=== PATIENT | female | born 1950 | race Caucasian/White ===

== ENCOUNTER 2019-01-14 14:48 | Inpatient (IN) ==
[2019-01-14] MEDS ORDERED: SODIUM CHLORIDE 0.9% 1000ML 1,000 ML IV SCH (15:00)
[2019-01-14] MEDS ORDERED: MoRPHine SULFATE 2 MG/ML CARP IV PRN (15:00)
[2019-01-14] MEDS: MoRPHine SULFATE 4 MG/ML 1 ML CARP\\VIAL IV PRN ×5 (15:22→22:31)
[2019-01-14 15:29] LABS: Basophils # (auto) 0.07 K/uL (0-0.2); Basophils % (auto) 1.1 %; Eosinophils % (auto) 1.6 %; Hematocrit (blood only) 40.6 % (37-47); Hemoglobin 13.5 g/dL (12.0-16.0); Immature Granulocytes # (auto) 0.02 K/uL (0.00-0.02); Immature Granulocytes % (auto) 0.3 %; Lymphocytes # (auto) 1.99 K/uL (1.2-3.4); Lymphocytes % (auto) 31.9 %; Mean Corpuscular Hgb Conc 33.3 g/dL (32-36); Mean Corpuscular Volume 86.4 fL (80-100); Mean Platelet Volume 10.1 fL (7.4-10.4); Monocytes # (auto) 0.51 K/uL (0.11-0.59); Monocytes % (auto) 8.2 %; Neutrophils # (auto) 3.55 K/uL (1.4-6.5); Neutrophils % (auto) 56.9 %; Platelet Count 225 K/uL (130-400); RDW Standard Deviation 44.3 fL (36.4-46.3); White Blood Count 6.24 K/uL (4.8-10.8)
[2019-01-14 15:42] LABS: Partial Thromboplastin Ratio 0.9; Partial Thromboplastin Time 24.6 Seconds (21.0-31.0); Prothrombin Time 10.3 Seconds (9.0-12.0)
[2019-01-14 15:44] LABS: BUN Creatinine Ratio 18.6 (10-20); Calcium 9.3 mg/dl (8.5-10.1); Creatinine Clr Calc Pharmacy 55.7 ml/min; Est GFR (African American) 70.3; Est GFR (Non-African American) 60.7; Potassium 3.7 mmol/L (3.5-5.1)
[2019-01-14] MEDS ORDERED: MoRPHine SULFATE 4 MG/ML 1 ML CARP\\VIAL IV STA (15:47)
--- NOTE | 2019-01-14 16:00 | XRay Report ---
XR hip LT min 2V CLINICAL HISTORY: 68 years-old Female presenting with hip fx. TECHNIQUE: Frontal and frog-leg lateral views of the left hip were obtained. COMPARISON: None. FINDINGS: Intertrochanteric fracture of the left femoral neck with displaced fracture fragments along the super ior fracture plane. There is displacement of the lesser trochanteric fracture fragment. There is baeza tases less than 1 cm at the fracture plane. Mildly exaggerated varus angulation. The left femoral hea d remains congruent in the acetabulum. No deformity of the femoral head. Bony pelvis grossly intact. No radiographic soft tissue abnormality. IMPRESSION: Comminuted mildly angulated intertrochanteric left femur fracture. Electronically signed by: Jorge Jack M.D. 01/14/2019 3:59 PM
--- NOTE | 2019-01-14 16:01 | XRay Report ---
XR chest 1V portable CLINICAL HISTORY: 68 years-old Female presenting with hip fx. TECHNIQUE: Portable upright AP view of the chest was obtained. COMPARISON: None. FINDINGS: Atherosclerosis of the aortic arch. Cardiac silhouette top normal in size. No focal opacity. No large effusion or pneumothorax. Osseous structures normal. Upper abdomen normal. IMPRESSION: 1. Borderline cardiomegaly. No other convincing evidence of acute cardiopulmonary disease. Electronically signed by: Jorge Jack M.D. 01/14/2019 4:00 PM
--- NOTE | 2019-01-14 16:19 | Emergency Department Note ---
Entered by oSphia Stoner acting as a scribe for Jhonathan Ruano DO History of Present Illness General Chief complaint: Fall Stated complaint: FALL, HIP PAIN Time Seen by Provider: 01/14/19 14:53 Source: patient History of Present Illness Onset (ago): hour(s) (prior to arrival) Location: hip (fall) Pain Consistency: + other (episode) Relieved By: + none Associated symptoms: + denies other symptoms (numbness or tingling) and + other (left hip pain) The patient is a 68 year old F who presents to the Emergency Room with complaints of an episode of a fall that occurred prior to arrival. The patient states that she was at [employer] [place] when she slipped on something on the ground. She notes that her left leg gave out and she landed on her left hip. She adds that the ground was made of concrete. She notes that she is currently experiencing left hip pain. She denies experiencing numbness or tingling. She also denies hitting her head. She notes that she has a history of osteoporosis. She adds that she used to be prescribed Boniva but states that she was taken off of it after experiencing numbness. She states that she ate last today at 9am this morning. Home Medications Home Medications Medication Instructions Recorded Confirmed Type No Known Home Medications 01/14/19 01/14/19 History Allergies Allergy/AdvReac Type Severity Reaction Status Date / Time UMBERTO Inhibitors Allergy Mild Unknown Unverified 01/14/19 15:06 Penicillins Allergy Mild Unknown Unverified 01/14/19 15:06 Sulfa (Sulfonamide Allergy Mild Unknown Unverified 01/14/19 15:06 Antibiotics) Past Med/Surg History Medical History ACL injury tear (Chronic) Osteoporosis (Chronic) Family History Other No significant family history Social History Feels Safe at Home: Yes Smoking Status: Never smoker Review of Systems See HPI for pertinent positives & negatives. and A total of 10 systems reviewed and were otherwise negative Physical Exam Vital Signs Vital Signs - 24 hr 01/14/19 14:58 Temperature 36.8 C Temperature Source Oral Sepsis Recent Fever Within 48 Hours No Sepsis New/Unexplained Change in Mental Status No Sepsis Action Taken by Nursing No Action Required Pulse Rate 68 Respiratory Rate 18 Blood Pressure 167/96 H Blood Pressure Mean 119 Pulse Oximetry 98 Oxygen Delivery Method Room Air CONSTITUTIONAL/VITAL SIGNS: Reviewed / noted above. GENERAL: Non-toxic in appearance. INTEGUMENTARY: Warm, dry, and [place]. HEAD: Normocephalic. EYES: without scleral icterus or trauma. ENT/OROPHARYNX: clear and moist. LYMPHADENOPATHY/NECK: Is supple without lymphadenopathy or meningismus. RESPIRATORY: Lungs clear and equal. CARDIOVASCULAR: Regular rate and rhythm. GI/ABDOMEN: Soft and nontender. No organomegaly or pulsatile mass. No rebound or guarding. Normal bowel sounds. EXTREMITIES: Warm and well perfused. Left leg is externally rotated, slightly flexed, with obvious pain to movement. BACK: No CVA tenderness. NEUROLOGICAL: Intact without focal deficits. PSYCHIATRIC: normal affect. MUSCULOSKELETAL: Normally developed with good muscle tone. Tenderness to palpation of the left hip area. Course 1454: The patient was evaluated in room C9. A complete history and physical exam was performed. 1604: I re-checked the patient and updated her on her test results. 1608: I reviewed the patient's case with Dr. Matt Christine, [facility] Hospitalist. He will evaluate the patient for further management. Consultations Consultation #1: I reviewed the patient's case with Dr. Matt Christine, [facility] Hospitalist. He will evaluate the patient for further management. Time: 16:08 Administered Medications Sodium Chloride (Nss 1000ml) 1,000 mls @ 150 mls/hr IV .[id number] RADHA Stop: 01/14/19 21:39 Last Admin: 01/14/19 15:22 Dose: 150 mls/hr Documented by: [id number] Morphine Sulfate (Morphine Sulfate) 4 mg IV Q1H PRN PRN Reason: Severe Pain (Rating 7,8,9,10) Stop: 01/28/19 14:59 Last Admin: 01/14/19 15:22 Dose: 4 mg Documented by: [id number] Discontinued Medications Morphine Sulfate (Morphine Sulfate) 4 mg IV NOW STA Stop: 01/14/19 15:48 Last Admin: 01/14/19 15:50 Dose: 4 mg Documented by: [id number] Medical Decision Making Differential Diagnosis Differential diagnosis includes: fracture, dislocation, intra-abdominal, pneumothorax, intrathoracic , intracranial, neurologic, as well as other traumatic pathologies were entertained. Medical Records Attestation: I reviewed the patient's medical records. Home Medications Current Medication List: was personally reviewed by me Laboratory Data Attestation: I reviewed the patient's lab results. Result diagrams: 01/14/19 15:12 01/14/19 15:12 Lab Results 01/14/19 01/14/19 01/14/19 Range/Units 15:12 15:12 15:12 WBC 6.24 (4.8-10.8) K/uL RBC 4.70 (4.2-5.4) M/uL Hgb 13.5 (12.0-16.0) g/dL Hct 40.6 (37-47) % MCV 86.4 (80-100) fL MCH 28.7 (25-34) pg MCHC 33.3 (32-36) g/dL RDW Std Deviation 44.3 (36.4-46.3) fL RDW Coeff of Erica 14.0 (11.5-14.5) % Plt Count 225 (130-400) K/uL MPV 10.1 (7.4-10.4) fL Immature Gran % (Auto) 0.3 % Neut % (Auto) 56.9 % Lymph % (Auto) 31.9 % [place] % (Auto) 8.2 % Eos % (Auto) 1.6 % Baso % (Auto) 1.1 % Immature Gran # (Auto) 0.02 (0.00-0.02) K/uL Neut # (Auto) 3.55 (1.4-6.5) K/uL Lymph # (Auto) 1.99 (1.2-3.4) K/uL [place] # (Auto) 0.51 (0.11-0.59) K/uL Eos # (Auto) 0.10 (0-0.5) K/uL Baso # (Auto) 0.07 (0-0.2) K/uL PT 10.3 (9.0-12.0) Seconds INR 1.0 (0.9-1.1) APTT 24.6 (21.0-31.0) Seconds PTT Ratio 0.9 Sodium 141 (136-145) mmol/L Potassium 3.7 (3.5-5.1) mmol/L Chloride 110 H (98-107) mmol/L Carbon Dioxide 25 (21-32) mmol/L Anion Gap 7.0 (3-11) BUN 18 (7-18) mg/dl Creatinine 0.95 (0.6-1.2) mg/dl Est Cr Clr Drug Dosing 55.7 ml/min Est GFR ( Amer) 70.3 Est GFR (Non-Af Amer) 60.7 BUN/Creatinine Ratio 18.6 (10-20) Glucose 86 (70-99) mg/dl Calcium 9.3 (8.5-10.1) mg/dl Imaging Data Radiologist's Impression: Radiology results as stated below per my review and the radiologist's interpretation: XR hip LT min 2V CLINICAL HISTORY: 68 years-old Female presenting with hip fx. TECHNIQUE: Frontal and frog-leg lateral views of the left hip were obtained. COMPARISON: None. FINDINGS: Intertrochanteric fracture of the left femoral neck with displaced fracture fragments along the superior fracture plane. There is displacement of the lesser trochanteric fracture fragment. There is diastases less than 1 cm at the fracture plane. Mildly exaggerated varus angulation. The left femoral head remains congruent in the acetabulum. No deformity of the femoral head. Bony pelvis grossly intact. No radiographic soft tissue abnormality. IMPRESSION: Comminuted mildly angulated intertrochanteric left femur fracture. Electronically signed by: Jorge Jack M.D. 01/14/2019 3:59 PM XR chest 1V portable CLINICAL HISTORY: 68 years-old Female presenting with hip fx. TECHNIQUE: Portable upright AP view of the chest was obtained. COMPARISON: None. FINDINGS: Atherosclerosis of the aortic arch. Cardiac silhouette top normal in size. No focal opacity. No large effusion or pneumothorax. Osseous structures normal. Upper abdomen normal. IMPRESSION: 1. Borderline cardiomegaly. No other convincing evidence of acute cardiopulmonary disease. Electronically signed by: Jorge Jack M.D. 01/14/2019 4:00 PM ECG Data Attestation: I personally reviewed and interpreted this ECG as follows: Indication: other (hip pain from fall) Rate (beats per minute): 74 Rhythm: normal sinus Findings: no ST elevation and no ectopy Blood Pressure Blood Pressure Findings: Elevated blood pressure Blood Pressure Disposition: further management by hospitalist ELIZABETH Swift This is a 68-year-old female who presents to the ED with a chief complaint of a fall. The patient states that she slipped on wet cement when reaching for something and fell onto her left side. 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 She is from [place]. The patient complains of left hip pain. She was transported by EMS. Her test results today are consistent with the clinical diagnosis of a left hip fracture. X-ray shows a left intertrochanteric fracture. EKG shows sinus rhythm at a rate of 74. CBC and complete metabolic panel were normal and a chest x-ray did not show acute process. The patient was treated with IV morphine during her stay. She was told the results. I spoke with the hospitalist who will see her for further evaluation and care. Dr. Houser was consulted for orthopedics. Impression & Plan Hip fracture, left Discharge Plan Visit Data Chief Complaint: Fall Stated Complaint: FALL, HIP PAIN ED Provider: Jhonathan Ruano Discharge Problem: Hip fracture, left Patient Disposition: Admitted As Inpatient Forms Stand Alone Forms: [facility] Prescriptions Prescriptions: No Action No Known Home Medications RF: 0 Referrals Referrals: PCP,NO [Primary Care Provider] - Discharge Problem: Hip fracture, left Qualifiers: Encounter type: initial encounter Fracture type: closed Qualified Code(s): S72.002A - Fracture of unspecified part of neck of left femur, initial encounter for closed fracture The scribe's documentation has been prepared under my direction and personally reviewed by me in its entirety. I confirm that the note above accurately reflects all work, treatment, procedures, and medical decision making performed by me.
[2019-01-14 16:43] LABS: Appearance Urine Clear (Clear); Bilirubin Urine Negative (Negative); Blood Urine Negative (Negative); Color Urine Yellow; Glucose Urine UA Negative (Negative); Ketones Urine 1+ (Negative); Leukocyte Esterase Urine Negative (Negative); Nitrite Urine Negative (Negative); Protein Urine Negative (Negative); Specific Gravity Urine 1.014 (1.000-1.030); Urobilinogen Urine Negative (Negative); pH Urine 5.5 (4.5-7.5)
--- NOTE | 2019-01-14 16:56 | History & Physical Report ---
Date of Service January 14, 2019 History of Present Illness Primary Care Provider: NO PCP Allergies Allergy/AdvReac Type Severity Reaction Status Date / Time UMBERTO Inhibitors Allergy Mild Unknown Unverified 01/14/19 15:06 Penicillins Allergy Mild Unknown Unverified 01/14/19 15:06 Sulfa (Sulfonamide Allergy Mild Unknown Unverified 01/14/19 15:06 Antibiotics) Home Medications Home Medications Medication Instructions Recorded Confirmed Type No Known Home Medications 01/14/19 01/14/19 History Past Med/Surg History Medical History ACL injury tear (Chronic) Osteoporosis (Chronic) Family History Other No significant family history Social History Feels Safe at Home: Yes Smoking Status: Never smoker Results & Data Vital Signs (Past 12 Hours) Vital Signs Temp Pulse Pulse Resp BP BP Pulse Ox 01/14/19 16:26 74 18 161/89 H 98 01/14/19 14:58 98.2 F 68 18 167/96 H 98 PG Care Time/CCT Total # of Minutes Spent Total Time Spent with Patient: Total time spent is greater than 50% in coordination of care (as documented) at patient's floor/unit and/or counseling patient:
[2019-01-14] MEDS ORDERED: MAGNESIUM HYDROXIDE SUSP 30 ML UDC PO PRN ×2 (17:53→18:26)
[2019-01-14] MEDS ORDERED: BISACODYL 10 MG SUPP PR PRN (17:53)
[2019-01-14] MEDS ORDERED: NALOXONE HCL 0.4 MG/1 ML VIAL/CARP IV PRN (17:53)
--- NOTE | 2019-01-14 17:56 | History & Physical Report ---
Date of Service January 14, 2019 Assessment & Plan (1) Hip fracture, left: Closed left intertrochanteric fracture- Admit to medical surgical bed. N.p.o. after midnight. NSS + KCl 20 mEq at 100 mils per hour. Acetaminophen 1 g IV every 8 hours PRN mild pain or temperature. Morphine sulfate 4 mg IV every 3 hours as needed severe pain. Zofran 4 mg IV every 6 hours as needed. Famotidine 20 mg IV every 12 hours as needed. Consult Dr. Geo Houser, [place] [facility]. Geriatric hip fracture program Present on Admission?: Yes (2) Osteoporosis: Will need calcium and vitamin D supplementation. Present on Admission?: Yes (3) ACL injury tear: Resolved issue. Present on Admission?: Yes History of Present Illness Chief Complaint: Patient presents to the emergency department with left hip pain status post fall. Primary Care Provider: NO PCP The patient is a 68-year-old female with past medical history significant for ACL tear and osteoporosis, who had a mechanical fall earlier in the day, and sustained immediate left hip pain. In the emergency department, work-up included an x-ray which showed a closed left intertrochanteric fracture. Allergies Allergy/AdvReac Type Severity Reaction Status Date / Time UMBERTO Inhibitors Allergy Mild Unknown Unverified 01/14/19 15:06 Penicillins Allergy Mild Unknown Unverified 01/14/19 15:06 Sulfa (Sulfonamide Allergy Mild Unknown Unverified 01/14/19 15:06 Antibiotics) Home Medications Home Medications Medication Instructions Recorded Confirmed Type No Known Home Medications 01/14/19 01/14/19 History Past Med/Surg History Medical History ACL injury tear (Chronic) Osteoporosis (Chronic) Family History Other No significant family history Social History Feels Safe at Home: Yes Smoking Status: Never smoker Review of Systems Review of Systems: The patient denies chest pain, palpitations, shortness of breath, dyspnea on exertion, cough, lower extremity swelling, sore throat, fevers, chills, sweats, weight change, fatigue, nausea, vomiting, diarrhea , constipation, abdominal pain, pelvic pain, blood in urine or stool, dysuria, urinary frequency or urgency, lightheadedness, dizziness, headache, memory loss, loss of consciousness, rash, abnormal bruising or bleeding, focal or generalized weakness, numbness or tingling in arms or right leg, generalized arthralgias or myalgias, back or neck pain, or night sweats. The review of systems is otherwise negative other than for that already noted above, and at least 10 systems have been reviewed. Physical Exam Physical Exam: The patient is awake, alert and oriented 3, well developed and well nourished, normocephalic and atraumatic, lying in bed and in no acute distress. HEENT--PERRL, EOMI, mucous membranes and oropharynx normal. Neck--supple. No JVD. No bruits. Thyroid normal, trachea midline, no omid nopathy. Heart--normal S1 and S2. No murmurs, rubs or gallops. Lungs--clear bilaterally, no respiratory distress, no accessory muscle use. Abdomen--normal bowel sounds and soft. Nontender. Nondistended. Extremities--no cyanosis or clubbing. No edema. There are good distal pulses b/l. Dermatologic--normal skin turgor, normal color, no abnormal lymph nodes, no rash. Neurologic--cranial nerves II through XII grossly intact. Rheumatologic--decreased range of motion and reproducible pain over left hip, otherwise normal exam. Psychiatric--normal affect. Results & Data Vital Signs (Past 12 Hours) Vital Signs Temp Pulse Pulse Resp BP BP Pulse Ox 01/14/19 16:26 74 18 161/89 H 98 01/14/19 14:58 98.2 F 68 18 167/96 H 98 Laboratory Results Laboratory Results WBC 6.24 K/uL (4.8-10.8) 01/14/19 15:12 RBC 4.70 M/uL (4.2-5.4) 01/14/19 15:12 Hgb 13.5 g/dL (12.0-16.0) 01/14/19 15:12 Hct 40.6 % (37-47) 01/14/19 15:12 MCV 86.4 fL (80-100) 01/14/19 15:12 MCH 28.7 pg (25-34) 01/14/19 15:12 MCHC 33.3 g/dL (32-36) 01/14/19 15:12 RDW Std Deviation 44.3 fL (36.4-46.3) 01/14/19 15:12 RDW Coeff of Erica 14.0 % (11.5-14.5) 01/14/19 15:12 Plt Count 225 K/uL (130-400) 01/14/19 15:12 MPV 10.1 fL (7.4-10.4) 01/14/19 15:12 Immature Gran % (Auto) 0.3 % 01/14/19 15:12 Neut % (Auto) 56.9 % 01/14/19 15:12 Lymph % (Auto) 31.9 % 01/14/19 15:12 [place] % (Auto) 8.2 % 01/14/19 15:12 Eos % (Auto) 1.6 % 01/14/19 15:12 Baso % (Auto) 1.1 % 01/14/19 15:12 Immature Gran # (Auto) 0.02 K/uL (0.00-0.02) 01/14/19 15:12 Neut # (Auto) 3.55 K/uL (1.4-6.5) 01/14/19 15:12 Lymph # (Auto) 1.99 K/uL (1.2-3.4) 01/14/19 15:12 [place] # (Auto) 0.51 K/uL (0.11-0.59) 01/14/19 15:12 Eos # (Auto) 0.10 K/uL (0-0.5) 01/14/19 15:12 Baso # (Auto) 0.07 K/uL (0-0.2) 01/14/19 15:12 PT 10.3 Seconds (9.0-12.0) 01/14/19 15:12 INR 1.0 (0.9-1.1) 01/14/19 15:12 APTT 24.6 Seconds (21.0-31.0) 01/14/19 15:12 PTT Ratio 0.9 01/14/19 15:12 Sodium 141 mmol/L (136-145) 01/14/19 15:12 Potassium 3.7 mmol/L (3.5-5.1) 01/14/19 15:12 Chloride 110 mmol/L (98-107) H 01/14/19 15:12 Carbon Dioxide 25 mmol/L (21-32) 01/14/19 15:12 Anion Gap 7.0 (3-11) 01/14/19 15:12 BUN 18 mg/dl (7-18) 01/14/19 15:12 Creatinine 0.95 mg/dl (0.6-1.2) 01/14/19 15:12 Est Cr Clr Drug Dosing 55.7 ml/min 01/14/19 15:12 Est GFR ( Amer) 70.3 01/14/19 15:12 Est GFR (Non-Af Amer) 60.7 01/14/19 15:12 BUN/Creatinine Ratio 18.6 (10-20) 01/14/19 15:12 Glucose 86 mg/dl (70-99) 01/14/19 15:12 Calcium 9.3 mg/dl (8.5-10.1) 01/14/19 15:12 Urine Color Yellow 01/14/19 16:24 Urine Appearance Clear (Clear) 01/14/19 16:24 Urine pH 5.5 (4.5-7.5) 01/14/19 16:24 Ur Specific [place] 1.014 (1.000-1.030) 01/14/19 16:24 Urine Protein Negative (Negative) 01/14/19 16:24 Urine Glucose (UA) Negative (Negative) 01/14/19 16:24 Urine Ketones 1+ (Negative) H 01/14/19 16:24 Urine Blood Negative (Negative) 01/14/19 16:24 Urine Nitrite Negative (Negative) 01/14/19 16:24 Urine Bilirubin Negative (Negative) 01/14/19 16:24 Urine Urobilinogen Negative (Negative) 01/14/19 16:24 Ur Leukocyte Esterase Negative (Negative) 01/14/19 16:24 Blood Type O Positive 01/14/19 15:12 Antibody Screen NEGATIVE 01/14/19 15:12 Diagnostic Findings [facility] [address], [place] [phone] XRay Report Patient: GIGI FARRELL Date: 01/14/19 MR#: [id number]: [address] BRAY[address]LAISE Acct ID:[id number]: Date: 1950City Zip: [place] [address] Age: 68Location: ED Sex: F Room/Bed: Att Phy: Diagnosis: FALL, HIP PAIN Cony Phy: PCP,NO Service Date: 01/14/19 Fam Phy: Interpreting Phy: Jorge Jack MD Admit Phy: Ordering Phy: Jhonathan Ruano D.O. cc: ~ XR hip LT min 2V CLINICAL HISTORY: 68 years-old Female presenting with hip fx. TECHNIQUE: Frontal and frog-leg lateral views of the left hip were obtained. COMPARISON: None. FINDINGS: Intertrochanteric fracture of the left femoral neck with displaced fracture fragments along the superior fracture plane. There is displacement of the lesser trochanteric fracture fragment. There is diastases less than 1 cm at the fracture plane. Mildly exaggerated varus angulation. The left femoral head remains congruent in the acetabulum. No deformity of the femoral head. Bony pelvis grossly intact. No radiographic soft tissue abnormality. IMPRESSION: Comminuted mildly angulated intertrochanteric left femur fracture. Electronically signed by: Jorge Jack M.D. 01/14/2019 3:59 PM Dictated: 01/14/19 1558 Transcribed: 01/14/19 [address] [place], [place] [phone] XRay Report Patient: GIGI FARRELL Date: 01/14/19 MR#: [id number]: [address] [facility] Acct ID:[id number]: Date: 1950[facility] Zip: [place] [address] Age: 68Location: ED Sex: F Room/Bed: Att Phy: Diagnosis: FALL, HIP PAIN Cony Phy: PCP,NO Service Date: 01/14/19 [facility] Phy: Interpreting Phy: Jorge Jack MD Admit Phy: Ordering Phy: Jhonathan Ruano D.O. cc: ~ XR chest 1V portable CLINICAL HISTORY: 68 years-old Female presenting with hip fx. TECHNIQUE: Portable upright AP view of the chest was obtained. COMPARISON: None. FINDINGS: Atherosclerosis of the aortic arch. Cardiac silhouette top normal in size. No focal opacity. No large effusion or pneumothorax. Osseous structures normal. Upper abdomen normal. IMPRESSION: 1. Borderline cardiomegaly. No other convincing evidence of acute cardiopulmonary disease. Electronically signed by: Jorge Jack M.D. 01/14/2019 4:00 PM Dictated: 01/14/19 1559 Transcribed: 01/14/19 1559 Code Status & VTE Plan Code Status Full code VTE Prophylaxis Plan VTE Prophylaxis will be ordered: Yes PG Care Time/CCT Total # of Minutes Spent Total Time Spent with Patient: Total time spent is greater than 50% in coordination of care (as documented) at patient's floor/unit and/or counseling patient: (1) Hip fracture, left Encounter type: initial encounter Fracture type: closed Qualified Code(s): S72.002A - Fracture of unspecified part of neck of left femur, initial encounter for closed fracture
[2019-01-14] MEDS ORDERED: ALUMINUM/MAGNESIUM SUSP 30 ML UDC PO PRN (18:26)
[2019-01-14] MEDS ORDERED: ONDANSETRON INJ 2 MG/ML 2 ML VIAL IV PRN (18:26)
[2019-01-14] MEDS: ACETAMINOPHEN 1000 MG/100 ML IV IV PRN (18:33)
[2019-01-14] MEDS: NSS + 20MEQ KCL 20 MEQ/1,000 ML BAG IV SCH (19:22)
[2019-01-14] MEDS: FAMOTIDINE 20 MG in SYRINGE 3 ML IV SCH (19:22)
[2019-01-14] MEDS: DOCUSATE SODIUM/SENNA 50/8.6MG TAB PO SCH (20:48)
[2019-01-14] MEDS ORDERED: HYDROmorphone INJ 0.5 MG/0.5 ML SYR IV ONE (23:20)
[2019-01-15] MEDS: ACETAMINOPHEN 1000 MG/100 ML IV IV PRN ×2 (03:36→17:17)
[2019-01-15] MEDS: NSS + 20MEQ KCL 20 MEQ/1,000 ML BAG IV SCH (05:04)
[2019-01-15] MEDS: MoRPHine SULFATE 4 MG/ML 1 ML CARP\\VIAL IV PRN ×2 (05:58→08:59)
[2019-01-15 06:07] LABS: Basophils # (auto) 0.03 K/uL (0-0.2); Basophils % (auto) 0.5 %; Eosinophils # (auto) 0.09 K/uL (0-0.5); Eosinophils % (auto) 1.4 %; Hematocrit (blood only) 31.9 % (37-47); Hemoglobin 10.6 g/dL (12.0-16.0); Immature Granulocytes # (auto) 0.01 K/uL (0.00-0.02); Immature Granulocytes % (auto) 0.2 %; Lymphocytes # (auto) 2.01 K/uL (1.2-3.4); Lymphocytes % (auto) 31.2 %; Mean Corpuscular Hgb Conc 33.2 g/dL (32-36); Mean Corpuscular Volume 86.2 fL (80-100); Mean Platelet Volume 9.7 fL (7.4-10.4); Monocytes # (auto) 0.57 K/uL (0.11-0.59); Monocytes % (auto) 8.8 %; Neutrophils # (auto) 3.74 K/uL (1.4-6.5); Neutrophils % (auto) 57.9 %; Platelet Count 164 K/uL (130-400); RDW Standard Deviation 44.3 fL (36.4-46.3); White Blood Count 6.45 K/uL (4.8-10.8)
[2019-01-15] MEDS: FAMOTIDINE 20 MG in SYRINGE 3 ML IV SCH ×2 (06:15→21:22)
[2019-01-15 06:19] LABS: INR 1.1 (0.9-1.1); Partial Thromboplastin Ratio 0.9; Partial Thromboplastin Time 25.1 Seconds (21.0-31.0); Prothrombin Time 11.1 Seconds (9.0-12.0)
[2019-01-15 06:52] LABS: Albumin Globulin Ratio 1.2 (0.9-2); BUN Creatinine Ratio 16.4 (10-20); Bilirubin,Total 0.6 mg/dl (0.2-1); Calcium 7.8 mg/dl (8.5-10.1); Creatinine Clr Calc Pharmacy 78.6 ml/min; Est GFR (African American) 101.7; Est GFR (Non-African American) 87.8; Globulin 2.6 gm/dl (2.5-4.0); Potassium 3.6 mmol/L (3.5-5.1); Total Protein 5.6 gm/dl (6.4-8.2)
--- NOTE | 2019-01-15 07:30 | Anesthesiology Consultation ---
Date of Service January 15, 2019 Assessment & Plan (1) Encounter for pre-operative examination: Chart Review Chart Review: Acceptable Risk for Surgery History Surgery Operation Date: 01/15/19 09:00 Proposed Procedures p Intramedullary Esteban Femur(Left) - Geo Houser DO Height/Weight Height: 5 ft 5 in Weight: 81 kg Allergies Allergy/AdvReac Type Severity Reaction Status Date / Time UMBERTO Inhibitors Allergy Mild Unknown Verified 01/14/19 18:27 Penicillins Allergy Mild Unknown Verified 01/14/19 18:27 Sulfa (Sulfonamide Allergy Mild Unknown Verified 01/14/19 18:27 Antibiotics) Medications Home Medications Medication Instructions Recorded Confirmed Last Taken No Known Home Medications 01/14/19 01/14/19 Unknown Active Medications Generic Name Dose Route Start Last Admin Trade Name Freq PRN Reason Stop Dose Admin Acetaminophen 1,000 mg 01/14/19 18:26 01/15/19 03:36 Ofirmev IV 02/13/19 18:25 1,000 mg Q8H PRN Administration Pain or Fever Potassium Chloride/Sodium Chloride 20 meq in 1,000 mls @ 100 mls/hr 01/14/19 18:26 01/15/19 05:04 Normal Saline W/20 Meq Kcl IV 02/13/19 18:25 100 mls/hr .Q10H RADHA Administration Famotidine 20 mg/ Syringe 5 mls @ 2.5 mls/min 01/14/19 19:00 01/15/19 06:15 IV 02/13/19 18:59 2.5 mls/min Q12H RADHA Administration Morphine Sulfate 4 mg 01/14/19 18:26 01/15/19 05:58 Morphine Sulfate IV 01/28/19 18:25 4 mg Q3H PRN Administration Severe Pain Senna/Docusate Sodium 2 tab 01/14/19 21:00 01/14/19 20:48 Senokot S PO 02/13/19 20:59 2 tab HS RADHA Administration NPO Date Last Intake of Fluids: 01/15/19 Time Last Intake of Fluids: 00:00 Date Last Intake of Solids: 01/15/19 Time Last Intake of Solids: 00:00 Past Medical History Medical History ACL injury tear (Chronic) Osteoporosis (Chronic) Past Family History Family History Other No significant family history Social History Smoking Status: Former smoker Do You Dip or Chew Tobacco: No Hx Alcohol Use: Yes Alcohol type: beer, wine and hard liquor alcohol intake frequency: a few times a week Hx Substance Use: No Physical Exam Vital Signs Last Vital Signs Temp 36.7 C 01/15/19 07:39 Pulse 72 01/15/19 07:39 Resp 16 01/15/19 07:39 BP 129/77 01/15/19 07:39 Pulse Ox 98 01/15/19 07:39 Testing Laboratory Results 01/15/19 05:49 01/15/19 05:49 PT 11.1 Seconds (9.0-12.0) 01/15/19 05:49 INR 1.1 (0.9-1.1) 01/15/19 05:49 APTT 25.1 Seconds (21.0-31.0) 01/15/19 05:49 Urine Color Yellow 01/14/19 16:24 Urine Appearance Clear (Clear) 01/14/19 16:24 Urine pH 5.5 (4.5-7.5) 01/14/19 16:24 Ur Specific [place] 1.014 (1.000-1.030) 01/14/19 16:24 Urine Protein Negative (Negative) 01/14/19 16:24 Urine Glucose (UA) Negative (Negative) 01/14/19 16:24 Urine Ketones 1+ (Negative) H 01/14/19 16:24 Urine Nitrite Negative (Negative) 01/14/19 16:24 Ur Leukocyte Esterase Negative (Negative) 01/14/19 16:24 Blood Type O Positive 01/14/19 15:12 Antibody Screen NEGATIVE 01/14/19 15:12 Electrocardiogram Date: 01/14/19 Findings: + NSR @ (74 possible septal infarct) Chest X-Ray Date: 01/14/19 Findings: + NAD
--- NOTE | 2019-01-15 09:26 | Consultation Report ---
DATE OF CONSULTATION: 01/15/2019 CHIEF COMPLAINT: Left hip fracture. HISTORY OF PRESENT ILLNESS: The patient is a 68-year-old female from [place] in [place] the [place] weekend, when she slipped on a wet floor at [facility]. She fell injuring her left hip. She denies any other injuries as a result of fall. She denies any head, neck or back pain. She was brought to [facility] ED for evaluation. X-rays revealed a left hip fracture. She was admitted by the Medical Service and an Orthopedic consult was asked for. Currently, she is resting in bed. She appeared well-nourished, well-developed and is able to communicate effectively. She states she is normally healthy and active. She denies any significant heart disease, diabetes or other significant medical comorbidities. She ambulates independently without walker or cane. PHYSICAL EXAMINATION: Again she is lying in bed. Her toes are mobile and neurovascularly intact. She denies any head, neck or back pain. Her hips are irritable with gentle log rolling. X-RAYS: X-rays were reviewed and show a displaced intertrochanteric left hip fracture. ASSESSMENT: Displaced intertrochanteric left hip fracture. PLAN: The above discussed with the patient. I explained her she will need surgical fixation in the form of a trochanteric nail. Weightbearing status to be determined that she does have history of osteoporosis. She plans on going home upon discharge with her and family. Risks versus benefits were discussed and include but not limited to infection, DVT, need for further surgery, and anesthesia. We will proceed with a left hip trochanteric nail in the near future. The patient will be able to discuss any concerns or question with Dr. Houser preoperatively as well. CLIFF
[2019-01-15] MEDS ORDERED: BUPIVACAINE 0.5 % 5 MG/1 ML PF 10ML VIAL ONE (09:49)
[2019-01-15] MEDS ORDERED: MIDAZOLAM HCL 1 MG/ML 2ML VIAL ONE (10:32)
[2019-01-15] MEDS ORDERED: fentaNYL citrate 100 MCG/2 ML VIAL ONE (10:32)
[2019-01-15] MEDS ORDERED: KETOROLAC 30 MG/ML VIAL IV PRN (10:43)
[2019-01-15] MEDS ORDERED: PHENYLEPHRINE 100MCG/ML 5ML SYR IV PRN (10:43)
[2019-01-15] MEDS ORDERED: HYDROmorphone INJ 1 MG/ML SYRINGE IV PRN (10:43)
[2019-01-15] MEDS ORDERED: ePHEDrine sulfate 50 MG/ML AMP IV PRN (10:43)
[2019-01-15] MEDS ORDERED: ONDANSETRON INJ 2 MG/ML 2 ML VIAL IV PRN ×2 (10:43→13:55)
[2019-01-15] MEDS ORDERED: ATROPINE SULFATE 0.1 MG/ML 10ML SYR IV PRN (10:43)
--- NOTE | 2019-01-15 10:47 | History & Physical Bridge Note ---
Date of Service January 15, 2019 History & Physical Bridge Note I have examined the patient, reviewed the History & Physical and in the interval since the performance of the History & Physical I have noted the following changes of clinical significance: no changes noted
[2019-01-15] MEDS ORDERED: PROPOFOL IV EMULSION 10 MG/ML 20 ML VIAL IV ONE (11:25)
[2019-01-15] MEDS ORDERED: CLINDAMYCIN PHOS 300 MG/2 ML VIAL ONE (11:25)
[2019-01-15] MEDS ORDERED: LIDOCAINE HCL 2% 2 ML VIAL/AMP(20MG/ML) INFIL ONE (11:25)
[2019-01-15] MEDS ORDERED: BUPIVACAINE 0.5 % 5 MG/1 ML MPF 30ML VIAL ONE (11:35)
[2019-01-15] MEDS ORDERED: CLINDAMYCIN 600 MG/54 ML BAG IV SCH (11:45)
[2019-01-15] MEDS ORDERED: PHENYLEPHRINE 100MCG/ML 5ML SYR ONE (12:16)
--- NOTE | 2019-01-15 12:18 | Post Operative Brief Note ---
Immediate Post Op Note v1 Date of Surgery January 15, 2019 Pre & Post Diagnosis Operation Date: 01/15/19 09:00 Pre-Op Diagnosis: Closed Left displaced, angulated, four-part Intertrochanteric Hip Fracture Post-Op Diagnosis: Closed Left displaced, angulated, four-part Intertrochanteric Hip Fracture Procedure Operation Date: 01/15/19 09:00 Actual Procedures p Left Hip Open Reduction Internal Fixation Trochanteric Fracture with Synthes trochanteric nail 12 mm x 130 degrees x 235 mm length with a 11 mm x 100 mm helical blade and a 5 mm x 38 mm locking screw (Left) - Geo Houser DO Surgeon Geo Houser DO [employer] Operator Philipp Mendez PA-C Estimated Blood Loss 20 Findings Consistent with Post-Op Diagnosis Specimens None Drains Gilliland Catheter (pt came to OR with gilliland in place) Anesthesia Type General Complications none Disposition Accompanied Patient To Recovery: No Disposition: Recovery Room
[2019-01-15] MEDS ORDERED: ePHEDrine sulfate 50 MG/ML SYR ONE (12:35)
--- NOTE | 2019-01-15 12:43 | Fluoroscopy Report ---
INTRAOPERATIVE RADIOGRAPHS CLINICAL HISTORY: Open reduction and internal fixation of the left femur. Fluoroscopy time: 109 seconds. FINDINGS: 4 spot fluoroscopic views of the left femur are correlated with radiographs dated 01/14/2019 . Intertrochanteric and intramedullary nails have been placed transfixing a comminuted intertrochante darryl fracture. Near-anatomic alignment has been restored. There is persistent medial distraction of th e lesser trochanter. A single cortical lag screw transfixes the distal end of the intramedullary nail . Overlying soft tissue edema is noted. IMPRESSION: Intraoperative images from open reduction and internal fixation of the left femur as abov e. Electronically signed by: Kwabena Allan M.D. 01/15/2019 12:41 PM
--- NOTE | 2019-01-15 13:08 | XRay Report ---
SINGLE VIEW PELVIS; 2 VIEWS LEFT HIP CLINICAL HISTORY: Postoperative examination. FINDINGS: An AP portable view of the hips and lower pelvis with AP and crosstable lateral portable vi ews of the left hip are compared to study dated 01/14/2019. Intertrochanteric and intramedullary nails transfix a comminuted intertrochanteric fracture. There is jainism of near-anatomic alignment. T here is persistent medial distraction of the lesser trochanter. A single cortical lag screw transfixe s the intramedullary nail. No new fracture is identified. The visualized bony pelvis and the right hi p appear intact. Mild to moderate arthritic change is seen in the hips, right greater than left. Dege nerative sclerosis is noted in the pubic symphysis. There are expected postoperative changes overlyin g the left hip including skin clips, subcutaneous gas, and soft tissue swelling. IMPRESSION: 1. Expected postoperative findings status post open reduction and internal fixation of the left femur . 2. The orthopedic hardware appears intact. 3. No new fracture is seen. Electronically signed by: Kwabena Allan M.D. 01/15/2019 1:07 PM
[2019-01-15] MEDS ORDERED: METOCLOPRAMIDE HCL INJ 5 MG/ML 2 ML VIAL IV PRN (13:55)
[2019-01-15] MEDS ORDERED: MAGNESIUM HYDROXIDE SUSP 30 ML UDC PO PRN (13:55)
[2019-01-15] MEDS ORDERED: BISACODYL 10 MG SUPP PR PRN (13:55)
[2019-01-15] MEDS ORDERED: NALOXONE HCL 0.4 MG/1 ML VIAL/CARP IV PRN (13:55)
--- NOTE | 2019-01-15 13:57 | Anesthesiology Progress Note ---
Date of Service January 15, 2019 Anesthesia Post Procedure Vital Signs Vital Signs: Temp Pulse Pulse Pulse Resp BP BP 01/15/19 13:35 37.1 C 68 17 109/65 01/15/19 13:25 69 23 125/66 01/15/19 13:15 72 17 100/70 01/15/19 13:05 68 19 134/66 01/15/19 12:55 87 20 109/63 01/15/19 12:45 64 14 108/63 01/15/19 12:35 72 19 110/69 01/15/19 12:29 36.0 C L 63 16 131/73 01/15/19 07:39 36.7 C 72 16 129/77 01/14/19 23:28 36.8 C 72 16 134/79 01/14/19 18:28 36.7 C 76 20 152/67 H 01/14/19 17:53 69 18 149/89 H 01/14/19 16:26 74 18 161/89 H 01/14/19 14:58 36.8 C 68 18 167/96 H Pulse Ox 01/15/19 13:35 99 01/15/19 13:25 98 01/15/19 13:15 100 01/15/19 13:05 100 01/15/19 12:55 100 01/15/19 12:45 100 01/15/19 12:35 100 01/15/19 12:29 100 01/15/19 07:39 98 01/14/19 23:28 98 01/14/19 18:28 96 01/14/19 17:53 98 01/14/19 16:26 98 01/14/19 14:58 98 Pain Intensity Left Hip: Pain Intensity: 6 Transfer of Care Handoff Completed per policy Notes Mental Status: alert / awake / arousable Patient Amnestic to Procedure: Yes Nausea / Vomiting: adequately controlled Pain: adequately controlled Airway Patency, RR, SpO2: stable & adequate BP & HR: stable & adequate Hydration State: stable & adequate Anesthetic Complications: no major complications apparent
[2019-01-15] MEDS ORDERED: SODIUM CHLORIDE 0.9% 1000ML 1,000 ML IV SCH (14:15)
[2019-01-15] MEDS: KETOROLAC TROMETHAMINE 15 MG/ML VIAL IV SCH ×2 (14:39→21:22)
--- NOTE | 2019-01-15 18:01 | Hospitalist Progress Note ---
Date of Service January 15, 2019 Assessment & Plan (1) Hip fracture, left: Closed left intertrochanteric fracture -s/p open reduction and internal fixation by -Pain management prn. -Non-weight bearing on the left foot -Geriatric hip fracture program -DVT ppx with Lovenox 40 mg sc QD (2) Osteoporosis: Started calcium and vitamin D supplementation. (3) ACL injury tear: Resolved issue. Subjective Pt seen and examined at the bedside. Pt is a 68 y/o female from [place] weekend when she slipped on the wet floor which resulted with fall and closed left displaced angulated intratrochanteric hip fracture. She is now s/p left him open reduction and internal fixation trochanteric fracture by Dr. Houser. Pt tolerated procedure well. Pt denies any fever chills, chest pain SOB abdominal pain frequency and urgency. Review of Systems Review of Systems: All systems reviewed & are unremarkable except as noted in HPI & below Physical Exam Constitutional: WD/WN, vitals as above well developed and well nourished Eyes: PERRL, conjunctivae normal, anicteric sclerae ENMT: external ear and nose normal, oropharynx normal Neck: trachea midline, no thyromegaly Respiratory: normal respiratory effort, lungs clear to auscultation Cardiovascular: RRR, no murmur, no edema Chest (Breasts): normal inspection/palpation of breasts Gastrointestinal (Abdomen): normal bowel sounds, soft, nontender, no hepatosplenomegaly Musculoskeletal: all toes are mobile, full range or motion, no neurological deficit noted, pulses dorsalis pedis present bilaterally.Tenderness over left hip with gentle rolling. Skin: no rashes, warm and dry Neurologic: patellar DTR's 2+ bilat, sensation intact Psychiatric: A+Ox3, euthymic affect Genitourinary: no vaginal lesions, no adnexal mass Lymphatic: no cervical or axillary lymphadenopathy Results & Data Vital Signs (Past 12 Hours) Vital Signs Temp Pulse Pulse Resp BP Pulse Ox 01/15/19 16:52 36.9 C 86 18 138/81 98 01/15/19 15:54 37.2 C 87 18 123/74 98 01/15/19 15:05 86 18 128/73 97 01/15/19 14:20 36.4 C L 78 16 131/79 98 01/15/19 13:50 36.8 C 85 16 119/67 100 01/15/19 13:35 37.1 C 68 17 109/65 99 01/15/19 13:25 69 23 125/66 98 01/15/19 13:15 72 17 100/70 100 01/15/19 13:05 68 19 134/66 100 01/15/19 12:55 87 20 109/63 100 01/15/19 12:45 64 14 108/63 100 01/15/19 12:35 72 19 110/69 100 01/15/19 12:29 36.0 C L 63 16 131/73 100 01/15/19 07:39 36.7 C 72 16 129/77 98 PG Care Time/CCT Total # of Minutes Spent Total Time Spent with Patient: Total time spent is greater than 50% in coordination of care (as documented) at patient's floor/unit and/or counseling patient: (1) Hip fracture, left Encounter type: initial encounter Fracture type: closed Qualified Code(s): S72.002A - Fracture of unspecified part of neck of left femur, initial encounter for closed fracture
[2019-01-15] MEDS: FERROUS GLUCONATE 324 MG TAB PO SCH (18:18)
[2019-01-15] MEDS: CLINDAMYCIN 600 MG in DEXTROSE 5% 50 ML IV SCH (21:22)
[2019-01-15] MEDS: DOCUSATE SODIUM 100 MG CAP PO SCH (21:23)
[2019-01-15] MEDS: SENNA 8.6 MG TAB PO SCH (21:23)
[2019-01-15] MEDS: DOCUSATE SODIUM/SENNA 50/8.6MG TAB PO SCH (21:23)
[2019-01-15] MEDS: ASPIRIN 81 MG ECTAB PO SCH (21:24)
[2019-01-15] MEDS: ACETAMINOPHEN 325 MG TAB PO PRN (23:22)
[2019-01-16] MEDS: CLINDAMYCIN 600 MG in DEXTROSE 5% 50 ML IV SCH (03:23)
[2019-01-16] MEDS: KETOROLAC TROMETHAMINE 15 MG/ML VIAL IV SCH ×2 (03:23→08:37)
[2019-01-16 05:52] LABS: Basophils # (auto) 0.02 K/uL (0-0.2); Basophils % (auto) 0.3 %; Eosinophils # (auto) 0.06 K/uL (0-0.5); Hematocrit (blood only) 28.4 % (37-47); Hemoglobin 9.5 g/dL (12.0-16.0); Immature Granulocytes # (auto) 0.01 K/uL (0.00-0.02); Immature Granulocytes % (auto) 0.2 %; Lymphocytes # (auto) 1.34 K/uL (1.2-3.4); Lymphocytes % (auto) 21.3 %; Mean Corpuscular Hgb Conc 33.5 g/dL (32-36); Mean Corpuscular Volume 86.1 fL (80-100); Mean Platelet Volume 9.9 fL (7.4-10.4); Monocytes % (auto) 12.7 %; Neutrophils # (auto) 4.07 K/uL (1.4-6.5); Neutrophils % (auto) 64.5 %; Platelet Count 148 K/uL (130-400); RDW Coefficient of Variation 13.9 % (11.5-14.5); RDW Standard Deviation 43.6 fL (36.4-46.3)
[2019-01-16 06:21] LABS: Albumin Level 2.8 gm/dl (3.4-5.0); BUN Creatinine Ratio 14.3 (10-20); Calcium 7.9 mg/dl (8.5-10.1); Creatinine Clr Calc Pharmacy 80.9 ml/min; Est GFR (African American) 102.7; Est GFR (Non-African American) 88.6; Potassium 3.5 mmol/L (3.5-5.1)
[2019-01-16 06:23] LABS: INR 1.2 (0.9-1.1); Prothrombin Time 11.8 Seconds (9.0-12.0)
[2019-01-16] MEDS: FAMOTIDINE 20 MG in SYRINGE 3 ML IV SCH ×2 (06:23→20:40)
[2019-01-16 06:24] LABS: Albumin Globulin Ratio 1.1 (0.9-2); Bilirubin,Total 0.5 mg/dl (0.2-1); Globulin 2.5 gm/dl (2.5-4.0); Total Protein 5.3 gm/dl (6.4-8.2)
--- NOTE | 2019-01-16 07:45 | Anesthesiology Progress Note ---
Date of Service January 16, 2019 Anesthesia Post Procedure Vital Signs Vital Signs: Temp Pulse Pulse Resp BP Pulse Ox 01/16/19 03:13 37 C 84 16 136/76 97 01/15/19 23:33 37.2 C 88 18 130/75 96 01/15/19 22:16 38 C H 01/15/19 21:22 38.4 C H 01/15/19 19:11 36.8 C 85 16 144/75 H 97 01/15/19 16:52 36.9 C 86 18 138/81 98 01/15/19 15:54 37.2 C 87 18 123/74 98 01/15/19 15:05 86 18 128/73 97 01/15/19 14:20 36.4 C L 78 16 131/79 98 01/15/19 13:50 36.8 C 85 16 119/67 100 01/15/19 13:35 37.1 C 68 17 109/65 99 01/15/19 13:25 69 23 125/66 98 01/15/19 13:15 72 17 100/70 100 01/15/19 13:05 68 19 134/66 100 01/15/19 12:55 87 20 109/63 100 01/15/19 12:45 64 14 108/63 100 01/15/19 12:35 72 19 110/69 100 01/15/19 12:29 36.0 C L 63 16 131/73 100 Pain Intensity Left Hip: Pain Intensity: 6 Notes Mental Status: alert / awake / arousable and participated in evaluation Nausea / Vomiting: adequately controlled Pain: adequately controlled Airway Patency, RR, SpO2: stable & adequate BP & HR: stable & adequate Hydration State: stable & adequate Anesthetic Complications: no major complications apparent and Pt Satisfied with anesthetic care
--- NOTE | 2019-01-16 07:49 | Operative Report ---
DATE OF OPERATION: 01/15/2019 PREOPERATIVE DIAGNOSIS: Left hip displaced angulated 4-part intertrochanteric hip fracture. POSTOPERATIVE DIAGNOSIS: Left hip displaced angulated 4-part intertrochanteric hip fracture. PROCEDURE: Open reduction and internal fixation of left closed displaced angulated four-part intertrochanteric hip fracture with a Synthes titanium trochanteric nail measuring 235 mm in length using an 11 mm x 100 mm titanium helical blade and a 5 mm x 38 mm locking screw. SURGEON: Geo Houser DO. OFFICE TECHNOLOGIST: Philipp Mendez PA-C who was present for patient positioning, sterile prep and drape, management of retractors and instruments. He was present through the critical portions of the case including wound closure, application of sterile dressing and transport of the patient to recovery. ANESTHESIA: General with local. SPECIMENS: None. The patient sustained a slip and fall onto her left hip. She had been unable to ambulate, had significant pain and was then transferred to [facility] for evaluation. Radiographs and clinical exam demonstrated an intertrochanteric hip fracture with displacement. She was then admitted to the hospitalist service with orthopedics to consult. The patient was then scheduled for surgery as indicated. All potential risks, benefits, complications, alternatives, rehab potential for incomplete relief of symptoms, need for further surgery, DVT, PE, , persistent pain, swelling, scarring, weakness, neurovascular injury, wound complications, hardware failure, nonunion, malunion and bone fracture were discussed with the patient. The patient was then scheduled for surgery as indicated. PROCEDURE DESCRIPTION: The patient was transferred to the operative suite. The proper site was identified. The consent was reviewed, the patient was then administered sedation and spinal anesthetic. Once appropriate, the patient then transferred to the fracture table where the lower extremity was placed in fracture table traction and the nonoperative leg was placed in the well leg prakash. All bony prominences were properly padded and protected. The padded post was placed in the peroneal and the patient was positioned appropriately. Next the left leg was placed on traction and reduction of the fracture was performed under fluoroscopic control. Next the operative hip was then sterilely prepped and draped in the usual fashion. Next a 10-blade scalpel incision was used to make an incision proximal to the greater trochanter. The incision was deep in the subcutaneous tissue and fascia and the tip of the greater trochanter was then palpated followed by placement of a guide pin under fluoroscopic control driven into the greater trochanter down to the level of the less trochanter. This was confirmed in AP and lateral projections followed by placement of the proximal reamer over the cannulated guide pin. Next the reamer was then removed using the soft tissue protector, which was also removed. Next the ball tip guide montserrat was placed into the proximal femur under fluoroscopic control confirmed with AP and lateral fluoroscope projections. Next the trochanteric nail was then passed over the guide montserrat into the femur, the guide montserrat was removed and then under fluoroscopic control appropriate level of the femoral nail was then placed in AP projections. Next the targeting device was then fixed to the driving handle and 10-blade scalpel incision was made in the lateral aspect of the thigh. Next the tissue protector and cannulated guide system was then passed into the soft tissue until it was securely fixed against a lateral aspect of the femoral cortex. This was also confirmed under C-arm. Next the guide pin for the spiral blade was driven into the lateral aspect of the femur confirming this with AP lateral projections until the guide pin was in the center of the femoral neck and head approximately 5 mm from the subcortical bone of the femur. Next the spiral blade was then measured and then the lateral cortex was then drilled with the cortex reamer followed by use of the triple reamer with the depth stop set at appropriate depth. In this case, a 100 mm spiral blade was then inserted over the cannulated guide montserrat under fluoroscopic control. This was seated appropriately then traction was reduced from the limb and the fracture was then gently compressed and then locked proximally with the flexible screwdriver. Next the spiral blade was then disengaged from its insertion handle, insertion handle was then removed and the guide pin was removed from the femoral neck and head. Next the lateral targeting arm was used to insert the distal locking screw. First a 10-blade scalpel incision was made in the lateral aspect of the thigh, captured drill sleeves were then tamped gently to the lateral aspect of the femoral cortex then the locking screw hole was then drilled, measured and then an appropriate length screw was placed to lock the distal aspect of the nail. Next targeting sleeves were then removed. The insertion arm was then removed from the nail and final x-rays were obtained in AP and lateral projections. All incisions were then copiously irrigated with sterile normal saline. The proximal gluteus fascia was then closed using interrupted #1 Vicryl, the dermis was closed using buried interrupted 2-0 Vicryl sutures in all three incisions and the skin was then closed using skin ishan. A sterile compressive dressing consisting of Xeroform gauze, sterile 4 x 4's and Tegaderm was applied. The patient was then awakened and taken to recovery in stable condition. I attest to the content of the Intraoperative Record and any orders documented therein. Any exceptions are noted below. JOSED
--- NOTE | 2019-01-16 08:17 | Orthopedic Progress Note ---
Date of Service January 16, 2019 Assessment & Plan (1) Hip fracture, left: POD 1 s/p L TFN PT/OT protocols. TTWB. DVT prophylaxis - Enoxaparin daily, SCD's, MARTIR's. Pain management - Oxycodone,Hydromorphone,Toradol. DC planning - Pt lives in [place], [place] and would like to consider inpt Rehab vs SNF due to lack of help at home. CM to speak with patient to arrange. Subjective POD 1 s/p Left TFN Pt sitting up in her bed. Awake and alert. Mild pain in the hip and thigh today but controlled. No new complaints. Trying to decide where she needs to go from here as far as post care when dc'd. Thinking of inpt rehab vs SNF. Physical Exam Physical Exam: Dressings C/D/I. Thigh with swelling but soft. Calves soft,NT. NV intact. Toes mobile. Results & Data Vital Signs (Past 12 Hours) Vital Signs Temp Pulse Resp BP Pulse Ox 01/16/19 07:32 37.0 C 86 18 143/84 H 96 01/16/19 03:13 37 C 84 16 136/76 97 01/15/19 23:33 37.2 C 88 18 130/75 96 01/15/19 22:16 38 C H 01/15/19 21:22 38.4 C H Laboratory Results Laboratory Results WBC 6.30 K/uL (4.8-10.8) 01/16/19 05:33 RBC 3.30 M/uL (4.2-5.4) L 01/16/19 05:33 Hgb 9.5 g/dL (12.0-16.0) L 01/16/19 05:33 Hct 28.4 % (37-47) L 01/16/19 05:33 MCV 86.1 fL (80-100) 01/16/19 05:33 MCH 28.8 pg (25-34) 01/16/19 05:33 MCHC 33.5 g/dL (32-36) 01/16/19 05:33 RDW Std Deviation 43.6 fL (36.4-46.3) 01/16/19 05:33 RDW Coeff of Erica 13.9 % (11.5-14.5) 01/16/19 05:33 Plt Count 148 K/uL (130-400) 01/16/19 05:33 MPV 9.9 fL (7.4-10.4) 01/16/19 05:33 Immature Gran % (Auto) 0.2 % 01/16/19 05:33 Neut % (Auto) 64.5 % 01/16/19 05:33 Lymph % (Auto) 21.3 % 01/16/19 05:33 Harlan % (Auto) 12.7 % 01/16/19 05:33 Eos % (Auto) 1.0 % 01/16/19 05:33 Baso % (Auto) 0.3 % 01/16/19 05:33 Immature Gran # (Auto) 0.01 K/uL (0.00-0.02) 01/16/19 05:33 Neut # (Auto) 4.07 K/uL (1.4-6.5) 01/16/19 05:33 Lymph # (Auto) 1.34 K/uL (1.2-3.4) 01/16/19 05:33 Harlan # (Auto) 0.80 K/uL (0.11-0.59) H 01/16/19 05:33 Eos # (Auto) 0.06 K/uL (0-0.5) 01/16/19 05:33 Baso # (Auto) 0.02 K/uL (0-0.2) 01/16/19 05:33 PT 11.8 Seconds (9.0-12.0) 01/16/19 05:37 INR 1.2 (0.9-1.1) H 01/16/19 05:37 APTT 25.1 Seconds (21.0-31.0) 01/15/19 05:49 PTT Ratio 0.9 01/15/19 05:49 Sodium 141 mmol/L (136-145) 01/16/19 05:33 Potassium 3.5 mmol/L (3.5-5.1) 01/16/19 05:33 Chloride 110 mmol/L (98-107) H 01/16/19 05:33 Carbon Dioxide 26 mmol/L (21-32) 01/16/19 05:33 Anion Gap 5.0 (3-11) 01/16/19 05:33 BUN 10 mg/dl (7-18) 01/16/19 05:33 Creatinine 0.68 mg/dl (0.6-1.2) 01/16/19 05:33 Est Cr Clr Drug Dosing 80.9 ml/min 01/16/19 05:33 Est GFR ( Amer) 102.7 01/16/19 05:33 Est GFR (Non-Af Amer) 88.6 01/16/19 05:33 BUN/Creatinine Ratio 14.3 (10-20) 01/16/19 05:33 Glucose 107 mg/dl (70-99) H 01/16/19 05:33 Calcium 7.9 mg/dl (8.5-10.1) L 01/16/19 05:33 Magnesium 2.0 mg/dl (1.8-2.4) 01/16/19 05:33 Total Bilirubin 0.5 mg/dl (0.2-1) 01/16/19 05:33 AST 18 U/L (15-37) 01/16/19 05:33 ALT 16 U/L (12-78) 01/16/19 05:33 Alkaline Phosphatase 58 U/L (45-117) 01/16/19 05:33 Total Protein 5.3 gm/dl (6.4-8.2) L 01/16/19 05:33 Albumin 2.8 gm/dl (3.4-5.0) L 01/16/19 05:33 Globulin 2.5 gm/dl (2.5-4.0) 01/16/19 05:33 Albumin/Globulin Ratio 1.1 (0.9-2) 01/16/19 05:33 Urine Color Yellow 01/14/19 16:24 Urine Appearance Clear (Clear) 01/14/19 16:24 Urine pH 5.5 (4.5-7.5) 01/14/19 16:24 Ur Specific [place] 1.014 (1.000-1.030) 01/14/19 16:24 Urine Protein Negative (Negative) 01/14/19 16:24 Urine Glucose (UA) Negative (Negative) 01/14/19 16:24 Urine Ketones 1+ (Negative) H 01/14/19 16:24 Urine Blood Negative (Negative) 01/14/19 16:24 Urine Nitrite Negative (Negative) 07/13/19 16:24 Urine Bilirubin Negative (Negative) 01/14/19 16:24 Urine Urobilinogen Negative (Negative) 01/14/19 16:24 Ur Leukocyte Esterase Negative (Negative) 01/14/19 16:24 Blood Type O Positive 01/14/19 15:12 Antibody Screen NEGATIVE 01/14/19 15:12 (1) Hip fracture, left Encounter type: initial encounter Fracture type: closed Qualified Code(s): S72.002A - Fracture of unspecified part of neck of left femur, initial encounter for closed fracture
[2019-01-16] MEDS: DOCUSATE SODIUM 100 MG CAP PO SCH ×2 (08:36→20:43)
[2019-01-16] MEDS: FERROUS GLUCONATE 324 MG TAB PO SCH ×2 (08:36→16:03)
[2019-01-16] MEDS: ASPIRIN 81 MG ECTAB PO SCH ×2 (08:36→20:43)
[2019-01-16] MEDS: MULTIVITAMIN TAB PO SCH (08:37)
[2019-01-16] MEDS: ENOXAPARIN INJ 40 MG/0.4 ML SYR SQ SCH (08:41)
[2019-01-16] MEDS: ACETAMINOPHEN 325 MG TAB PO PRN ×2 (11:43→15:58)
[2019-01-16] MEDS: SENNA 8.6 MG TAB PO SCH (20:39)
[2019-01-16] MEDS: DOCUSATE SODIUM/SENNA 50/8.6MG TAB PO SCH (20:43)
[2019-01-16] MEDS: OXYCODONE HCL IR 5 MG TAB (IMMEDIATE RELEASE) PO PRN (20:47)
--- NOTE | 2019-01-16 21:36 | Hospitalist Progress Note ---
Date of Service January 16, 2019 Assessment & Plan (1) Hip fracture, left: Closed left intertrochanteric fracture -s/p open reduction and internal fixation by -Pain management prn. -Non-weight bearing on the left foot -Geriatric hip fracture program -DVT ppx with Lovenox 40 mg sc QD Patient is also on ASA 81 mg PO BID. Patient is currently awaiting placement (2) Osteoporosis: Started calcium and vitamin D supplementation. (3) ACL injury tear: Resolved issue. Spent 25 minutes in management of patient. Subjective Patient reports feeling well. She has no new complaints at this time. Review of Systems Review of Systems: All systems reviewed & are unremarkable except as noted in HPI & below Physical Exam Physical Exam: Constitutional: WD/WN, vitals as above well developed and well nourished Eyes: PERRL, conjunctivae normal, anicteric sclerae Neck: trachea midline, no thyromegaly Respiratory: normal respiratory effort, lungs clear to auscultation Cardiovascular: RRR, no murmur, no edema Chest (Breasts): normal inspection/palpation of breasts Gastrointestinal (Abdomen): normal bowel sounds, soft, nontender, no hepatosplenomegaly Musculoskeletal: all toes are mobile, full range or motion, no neurological deficit noted, pulses dorsalis pedis present bilaterally. Skin: no rashes, warm and dry Neurologic: patellar DTR's 2+ bilat, sensation intact Psychiatric: A+Ox3, euthymic affect Genitourinary: no vaginal lesions, no adnexal mass Lymphatic: no cervical or axillary lymphadenopathy Results & Data Vital Signs (Past 12 Hours) Vital Signs Temp Pulse Pulse Resp BP Pulse Ox 01/16/19 15:02 37.2 C 79 17 120/71 95 01/16/19 11:37 37.2 C 80 12 116/77 97 PG Care Time/CCT Total # of Minutes Spent Total Time Spent with Patient: Total time spent is greater than 50% in coordination of care (as documented) at patient's floor/unit and/or counseling patient: (1) Hip fracture, left Encounter type: initial encounter Fracture type: closed Qualified Code(s): S72.002A - Fracture of unspecified part of neck of left femur, initial encounter for closed fracture
[2019-01-17] MEDS: ACETAMINOPHEN 325 MG TAB PO PRN (00:22)
[2019-01-17] MEDS: OXYCODONE HCL IR 5 MG TAB (IMMEDIATE RELEASE) PO PRN ×3 (01:15→16:22)
[2019-01-17] MEDS: FAMOTIDINE 20 MG in SYRINGE 3 ML IV SCH (05:58)
--- NOTE | 2019-01-17 07:52 | XRay Report ---
XR knee LT 2V routine CLINICAL HISTORY: Left knee pain pain COMPARISON: None. DISCUSSION: Lucency inferior to the tibial spines on the AP projection. This potentially relates to a potential nondisplaced loose body representing of the tibial spines themselves. There is moderate degenerative changes of the medial joint compartment and patellofemoral joint. No e vidence for acute fractures present. There is no evidence for soft tissue swelling. IMPRESSION: Potential ostial lysis inferior to the tibial spines raising the possibility of a developing loose vidya dy or fragmentation of the tibial spines themselves. Moderate degenerative change of the medial and p atellofemoral joint compartments. The above report was generated using voice recognition software. It may contain grammatical, syntax or spelling errors. Electronically signed by: Sloan Rodriguez M.D. 01/17/2019 7:51 AM
[2019-01-17] MEDS: ENOXAPARIN INJ 40 MG/0.4 ML SYR SQ SCH (08:03)
[2019-01-17] MEDS: MULTIVITAMIN TAB PO SCH (08:03)
[2019-01-17] MEDS: ASPIRIN 81 MG ECTAB PO SCH (08:03)
[2019-01-17] MEDS: MoRPHine SULFATE 4 MG/ML 1 ML CARP\\VIAL IV PRN ×2 (08:11→12:37)
[2019-01-17 08:22] LABS: Basophils # (auto) 0.03 K/uL (0-0.2); Basophils % (auto) 0.4 %; Eosinophils # (auto) 0.11 K/uL (0-0.5); Eosinophils % (auto) 1.5 %; Hematocrit (blood only) 26.8 % (37-47); Immature Granulocytes # (auto) 0.01 K/uL (0.00-0.02); Immature Granulocytes % (auto) 0.1 %; Lymphocytes # (auto) 1.21 K/uL (1.2-3.4); Lymphocytes % (auto) 16.1 %; Mean Corpuscular Hgb Conc 33.6 g/dL (32-36); Mean Corpuscular Volume 85.9 fL (80-100); Mean Platelet Volume 9.7 fL (7.4-10.4); Monocytes # (auto) 0.85 K/uL (0.11-0.59); Monocytes % (auto) 11.3 %; Neutrophils # (auto) 5.32 K/uL (1.4-6.5); Neutrophils % (auto) 70.6 %; Platelet Count 150 K/uL (130-400); RDW Coefficient of Variation 14.3 % (11.5-14.5); RDW Standard Deviation 44.4 fL (36.4-46.3); Red Blood Count 3.12 M/uL (4.2-5.4); White Blood Count 7.53 K/uL (4.8-10.8)
[2019-01-17] MEDS: DOCUSATE SODIUM 100 MG CAP PO SCH (08:23)
[2019-01-17 08:31] LABS: INR 1.1 (0.9-1.1); Prothrombin Time 11.1 Seconds (9.0-12.0)
[2019-01-17 09:02] LABS: Albumin Level 2.8 gm/dl (3.4-5.0); BUN Creatinine Ratio 15.3 (10-20); Calcium 8.3 mg/dl (8.5-10.1); Creatinine Clr Calc Pharmacy 80.9 ml/min; Est GFR (African American) 102.7; Est GFR (Non-African American) 88.6; Potassium 3.6 mmol/L (3.5-5.1)
[2019-01-17 09:05] LABS: Albumin Globulin Ratio 0.9 (0.9-2); Bilirubin,Total 0.6 mg/dl (0.2-1); Total Protein 5.8 gm/dl (6.4-8.2)
[2019-01-17] MEDS: FERROUS GLUCONATE 324 MG TAB PO SCH (09:07)
--- NOTE | 2019-01-17 15:21 | Orthopedic Progress Note ---
Date of Service January 17, 2019 Assessment & Plan (1) Hip fracture, left: POD 2 s/p L TFN Left Knee pain PT/OT protocols. TTWB. DVT prophylaxis - Enoxaparin daily, SCD's, MARTIR's. Pain management - Oxycodone,Hydromorphone,Toradol. Case reviewed with Dr Keenan. Plan for immobilizer to left knee. Use with ambulation. May be off in bed. Ice to Left Knee off and on as needed. F/U with Dr Houser in 2 weeks. DC planning - Pt lives in [place], [place] and would like to consider inpt Rehab vs SNF due to lack of help at home. Arranged by CM. Subjective POD 2 Pt seen earlier this AM and at that time had no c/o hip pain but stated that her knee was now starting to have moderate pain medially. No other complaints. Denied SOB, CP, LH. Xray of left knee ordered which showed no acute fx's. Question of osteolysis at the tibial spine. Pt states she had previous arthroscopy on that knee last year for meniscal tear and avulsion of the PCL insertion site on the tibia. Currently she is feeling good. State the knee pain is less this afternoon than this AM. Physical Exam Physical Exam: Noted swellng of the thigh that travels down to the knee. Thigh and knee are soft. Knee with tenderness medially over the medial collateral. Collaterals feel stable although she has mild medial pain when stressing the medial collateral. Passive flexion to 90 with minimal pain. Full extension. More pain with in the medial side with active flexion. Hip dressings C/D/I. NV intact. Calves soft, NT. Toes mobile. Results & Data Vital Signs (Past 12 Hours) Vital Signs Temp Pulse Resp BP Pulse Ox 01/17/19 07:07 37.0 C 83 18 132/82 93 (1) Hip fracture, left Encounter type: initial encounter Fracture type: closed Qualified Code(s): S72.002A - Fracture of unspecified part of neck of left femur, initial encounter for closed fracture
[2019-01-17 15:26] LABS: Hematocrit (blood only) 27.2 % (37-47)
--- NOTE | 2019-01-26 07:42 | Discharge Summary ---
Date of Service January 17, 2019 Admission HPI Per Admitting Provider The patient is a 68-year-old female with past medical history significant for ACL tear and osteoporosis, who had a mechanical fall earlier in the day, and sustained immediate left hip pain. In the emergency department, work-up included an x-ray which showed a closed left intertrochanteric fracture. Principal Diagnosis Closed left intertrochanteric fracture Discharge Exam Constitutional: WD/WN, vitals as above well developed and well nourished Eyes: PERRL, conjunctivae normal, anicteric sclerae Neck: trachea midline, no thyromegaly Respiratory: normal respiratory effort, lungs clear to auscultation Cardiovascular: RRR, no murmur, no edema Chest (Breasts): normal inspection/palpation of breasts Gastrointestinal (Abdomen): normal bowel sounds, soft, nontender, no hepatosplenomegaly Musculoskeletal: all toes are mobile, full range or motion, no neurological deficit noted, pulses dorsalis pedis present bilaterally. Skin: no rashes, warm and dry Neurologic: patellar DTR's 2+ bilat, sensation intact Psychiatric: A+Ox3, euthymic affect Genitourinary: no vaginal lesions, no adnexal mass Lymphatic: no cervical or axillary lymphadenopathy Discharge Data Allergies Allergy/AdvReac Type Severity Reaction Status Date / Time UMBERTO Inhibitors Allergy Mild Unknown Verified 01/14/19 18:27 Penicillins Allergy Mild Unknown Verified 01/14/19 18:27 Sulfa (Sulfonamide Allergy Mild Unknown Verified 01/14/19 18:27 Antibiotics) Consultations 01/14/19 16:13 ED Decision to Admit Stat 01/14/19 17:53 Consult Case Management - Discharge Planning Routine 01/14/19 18:26 Consult Case Management - Discharge Planning Routine 01/14/19 18:49 Consult Orthopedic Surgery Routine 01/15/19 13:55 Consult Case Management - Discharge Planning Routine Procedures Performed Operation Date: 01/15/19 09:00 Actual Procedures p Left Hip Open Reduction Internal Fixation Trochanteric Fracture(Left) - Geo Houser, Ordered Studies 01/15/19 07:00 FL femur LT 2V Routine 01/15/19 10:00 FL fluoroscopy <1hr Routine Hospital Course (1) Hip fracture, left: Closed left intertrochanteric fracture -s/p open reduction and internal fixation by -Non-weight bearing on the left foot -Geriatric hip fracture program -DVT ppx with Lovenox 40 mg sc QD Patient is also on ASA 81 mg PO BID. Pain management - Oxycodone,Hydromorphone,Toradol. Case reviewed with Dr Keenan. Plan for immobilizer to left knee. Use with ambulation. May be off in bed. Ice to Left Knee off and on as needed. F/U with Dr Houser in 2 weeks. (2) Osteoporosis: Started calcium and vitamin D supplementation. (3) ACL injury tear: Resolved issue. Total Time Total Time Spent Total Time Spent (In Minutes): 32 Total Time Includes: Examination of the Patient, Discharge Planning and Medication Reconciliation Discharge Plan Discharge Items Patient Disposition: Transfer Inpatient Rehab Fac Reason For Visit: CLOSED LEFT INTERTROCH FRACTURE Discharge Diagnosis: Closed left intertroch fracture Discharge Goals: Decrease discomfort Activity: As commented below Activity Comment: Touch weight bearing for at least 2-4 weeks, Lifting: Gradually increase as tolerated Weightbearing: Left toe touch Weightbearing Comment: Toe touch weight bearing with walker Non-emergency contact: Surgeon Call non-emergency contact if: your pain is not controlled, your temperature is above 101.5, your wound has increased redness and your wound has increased drainage Follow-up/Referrals: PCP,NO [Primary Care Provider] - Diet: Regular Addtl Provider Instructions: Recheck CBC without diff in 1 week. Send results to Rehab and PCP. [facility] DISCHARGE INSTRUCTIONS: HIP FRACTURE SELF CARE INSTRUCTIONS: A. You are to ambulate with a walker or crutches for approximately 6 weeks. B. You are TOE TOUCH WEIGHT BEARING on your operative lower extremity for at least 6 weeks. C. Wear low heeled shoes with non-slip soles D. Be sure that your floors are free of things that could trip you throw rugs, electrical cords, and small objects. Avoid wet and waxed floors, especially with crutches/walker/cane. E. Try to walk several times a day with rest periods between. F. You may shower 48 hours after surgery and get the incision area wet, but DO NOT soak or submerge incision area in water. (No baths, swimming pools, hot tubs) G. You may have a large, band-aid like dressing over your incision (Aquacel). This will remain on your incision for 7 days, and then can be removed. You CAN shower with this on. If incision is leaking through the dressing, please call the office . H. Do NOT apply soap or any ointment/lotions directly over incision. I. You may use ice as needed to operative site. SPECIAL CARE INSTRUCTIONS: VERY IMPORTANT TO READ AND REVIEW A. You may be at risk for phlebitis or blood clots. a. Wear surgical stockings (MARTIR hose) for 2 weeks after surgery to improve circulation and reduce swelling. b. Take LOVENOX 40mg SQ daily2 weeks, then ASA 81mg in the AM and PM for 2 weeks. This is your blood thinner. c. If you are on Coumadin- you will have daily/weekly blood work to monitor your levels. This will be done by either your family physician/surveillance system monitor (if you are on Coumadin chronically) versus your orthopedic surgeon. Expect a phone call the day of or the day after your blood work is drawn to adjust your dose accordingly. B. There are a few signs you need to watch for after you are home. Call [facility] at [phone] if you experience any of the following: a. If you have a temperature of 101 degrees or higher. b. Sudden increase in pain in your hip not relieved by rest or pain medication. c. Any fluid or drainage from the incision; redness of the incision. d. Shortness of breath or chest pain. C. Call your physician if: a. Temperature is greater than 101 degrees (F). b. Pain is not relieved by prescribed pain medications. c. Increase drainage or redness from incision. d. Unanswered questions or concerns. D. Pain Medication: a. You will be prescribed pain medication upon discharge that should last till your first post-operative appointment. b. If you experience nausea and/or skin rash, discontinue this medication and contact our office for an alternative medication. c. Caution- narcotic pain medication can cause constipation. FOLLOW UP VISIT: Please call [facility] at [phone] to schedule a follow up appointment 10-14 days from the date of your surgery date. Prescriptions: New multivitamin [Daily-Ghazal] Tablet 1 tab PO QAM Qty: 30 RF: 0 acetaminophen [Mapap (acetaminophen)] 325 mg Tablet 650 mg PO Q4H PRN (Reason: pain) Qty: 30 RF: 0 aspirin [Ecotrin Low Strength] 81 mg Tablet,Delayed Release (Dr/Ec) 81 mg PO BID Qty: 0 RF: 0 docusate sodium 100 mg Capsule 100 mg PO BID Qty: 0 RF: 0 oxycodone 5 mg Tablet 5 - 10 mg PO Q4H PRN (Reason: pain) Qty: 30 RF: 0 enoxaparin 40 mg/0.4 mL Syringe 40 mg subcut QAM Qty: 0 RF: 0 ferrous gluconate 324 mg (38 mg iron) Tablet 324 mg PO BIDM Qty: 0 RF: 0 Stand-Alone Forms: [employer], [facility] [employer]/Other Patient Handouts: Surgery Prevent DVT After Discharge Orders: Discharge Order (Routine); Ordered 01/17/19 Ordered By: Geovani Dowd Skilled Items Patient informed of condition?: Yes DNR: No Discharge Level of Care: Acute rehab Communicable Disease: No Discharge Prognosis: Improving Admission Data Admit Date/Time: 01/14/19 16:57 Attending Provider: Geovani Dowd Admit Provider: Matt Christine Primary Care Provider: PCP,NO Other Providers: Miguel Dick ; Philipp Mendez ; Geo Houser ; Toña Haskins ; Abraham Benitez ; Ruben Moreno ; Sigifredo Villarreal Service: Medical Other Interventions: Discharge Summary Assessment (RN) Last Done: 01/17/19 15:17 DC Date/Time DO NOT enter until pt leaves facility: 01/17/19 17:04
== END 2019-01-17 17:04 | DRG 481 ==
LOC: ED 14:48 → SUATTDRO 16:57 → 3N 16:57
DX: M80.052A Age-related osteoporosis with current pathological fracture, left femur, initial encounter for fracture; S83.412A Sprain of medial collateral ligament of left knee, initial encounter; Z87.828 Personal history of other (healed) physical injury and trauma; W01.0XXA Fall on same level from slipping, tripping and stumbling without subsequent striking against object, initial encounter; Z88.8 Allergy status to other drugs, medicaments and biological substances; Y99.8 Other external cause status; Z88.0 Allergy status to penicillin; Z88.2 Allergy status to sulfonamides; Y92.512 Supermarket, store or market as the place of occurrence of the external cause; D62 Acute posthemorrhagic anemia